=== PATIENT | male | born 1960 | race African-American/Black ===

== ENCOUNTER 2018-03-30 12:10 | Observation (INO) | payer OTHER ==
[2018-03-30 12:59] LABS: ABSOLUTE MONOCYTES (AUTO) 0.4 10^3/uL (0.1-1.4); ABSOLUTE NEUT (AUTO) 11.1 10^3/uL (1.7-8.2); BASOPHILS % (AUTO) 0.3 % (0-2); EOSINOPHILS % (AUTO) 0.2 % (0-6); HEMATOCRIT 41.1 % (37.9-51.0); HEMOGLOBIN 13.8 g/dL (13.5-17.0); LYMPHOCYTES % (AUTO) 8.3 % (13-45); MEAN CORPUSCULAR HEMOGLOBIN 29.8 pg (27.0-33.4); MEAN CORPUSCULAR HGB CONC 33.6 g/dL (32.0-36.0); MEAN CORPUSCULAR VOLUME 89 fl (80-97); MONOCYTES % (AUTO) 3.4 % (3-13); PLATELET COUNT 177 10^3/uL (150-450); RED BLOOD COUNT 4.63 10^6/uL (4.35-5.55); RED CELL DISTRIBUTION WIDTH 14.6 % (11.5-14.0); SEGMENTED NEUTROPHILS % (AUTO) 87.8 % (42-78); TOTAL CELLS COUNTED % (AUTO) 100 %; WHITE BLOOD COUNT 12.7 10^3/uL (4.0-10.5)
[2018-03-30 13:11] LABS: ALANINE AMINOTRANSFERASE 19 U/L (21-72); ALBUMIN 4.1 g/dL (3.5-5.0); ALKALINE PHOSPHATASE 80 U/L (38-126); ANION GAP 12 (5-19); ASPARTATE AMINO TRANSFERASE 29 U/L (17-59); BILIRUBIN,DIRECT 0.2 mg/dL (0.0-0.4); BILIRUBIN,TOTAL 0.9 mg/dL (0.2-1.3); BLOOD UREA NITROGEN 14 mg/dL (7-20); CALCIUM 9.4 mg/dL (8.4-10.2); CARBON DIOXIDE 28 mmol/L (22-30); CHLORIDE 104 mmol/L (98-107); CREATINE KINASE 347 U/L (55-170); GLUCOSE 165 mg/dL (75-110); POTASSIUM 3.6 mmol/L (3.6-5.0); TOTAL PROTEIN 7.2 g/dL (6.3-8.2)
[2018-03-30 13:31] LABS: TROPONIN I < 0.012 ng/mL
[2018-03-30 14:19] LABS: APPEARANCE,URINE SLIGHTLY-CLOUDY; BILIRUBIN,URINE NEGATIVE (NEGATIVE); COLOR,URINE YELLOW; GLUCOSE, URINE NEGATIVE (NEGATIVE); KETONES,URINE NEGATIVE (NEGATIVE); LEUKOCYTE ESTERASE,URINE NEGATIVE (NEGATIVE); NITRITE,URINE NEGATIVE (NEGATIVE); PROTEIN,URINE NEGATIVE (NEGATIVE); URINE SPECIFIC GRAVITY 1.017
--- NOTE | 2018-03-30 14:28 | RADIOLOGY REPORT (SQ) ---
EXAM DESCRIPTION: CHEST SINGLE VIEW COMPLETED DATE/TIME: 03/30/2018 1:43 pm REASON FOR STUDY: SYNCOPE COMPARISON: None. EXAM PARAMETERS: NUMBER OF VIEWS: One view. TECHNIQUE: Single frontal radiographic view of the chest acquired. RADIATION DOSE: NA LIMITATIONS: None. FINDINGS: LUNGS AND PLEURA: No opacities, masses or pneumothorax. No pleural effusion. MEDIASTINUM AND HILAR STRUCTURES: No masses. Contour normal. HEART AND VASCULAR STRUCTURES: Heart normal in size. Normal vasculature. BONES: No acute findings. HARDWARE: None in the chest. OTHER: No other significant finding. IMPRESSION: NO ACUTE RADIOGRAPHIC FINDING IN THE CHEST. TECHNICAL DOCUMENTATION: JOB ID: [id number] [employer]- All Rights Reserved Reading location - IP/workstation name: [email or web address]
--- NOTE | 2018-03-30 15:57 | ER Document Report ---
ED General - General Chief Complaint: Syncope Stated Complaint: SYNCOPAL EPISODE Time Seen by Provider: 03/30/18 12:22 Notes: Patient is a 57-year-old male that presents to the emergency department for chief complaint of syncope. Patient states that he was out fishing earlier today, and felt flushed, he took a few steps towards his truck, and collapsed, and lost consciousness. He states his only a few seconds. He denies having any headache, chest pain, or shortness of breath. He did not have any preceding symptoms other than feeling flushed and "not right" he denies having any nausea, vomiting, urinary incontinence, or biting his tongue. Denies prior history of seizures. States he does not believe he is passed out in the past. He did receive some IV fluids by EMS, he does feel somewhat better now. Past Medical History: Hypertension, hyperlipidemia Past Surgical History: Denies surgical history Social History: Denies tobacco, alcohol or drug use Family History: Reviewed and noncontributory for presenting illness Allergies: Reviewed, see documented allergy list. REVIEW OF SYSTEMS: Unless otherwise stated in this report the patient's positive and negative responses for review of systems for constitutional, eyes, ENT, cardiovascular, respiratory, gastrointestinal, neurological, genitourinary, musculoskeletal, and integumentary systems and related systems to the presenting problem are either as stated in the HPI or were not pertinent or were negative for the symptoms and/or complaints related to the presenting medical problem. PHYSICAL EXAMINATION: Vital signs reviewed, nursing noted reviewed. GENERAL: Well-appearing, well-nourished and in no acute distress. HEAD: Atraumatic, normocephalic. EYES: Eyes appear normal, extraocular movements intact, sclera anicteric, conjunctiva are normal. ENT: nares patent, oropharynx clear without exudates. Moist mucous membranes. NECK: Normal range of motion, supple without lymphadenopathy LUNGS: Breath sounds clear to auscultation bilaterally and equal. No wheezes rales or rhonchi. HEART: Regular rate and rhythm without murmurs ABDOMEN: Soft, nontender, normoactive bowel sounds. No rebound, guarding, or rigidity. No masses appreciated. EXTREMITIES: Nontender, good range of motion, no pitting or edema. NEUROLOGICAL: No focal neurological deficits. Moves all extremities spontaneously Motor and sensory grossly intact on exam. PSYCH: Normal mood, normal affect. SKIN: Warm, Dry, normal turgor, no rashes or lesions noted on exposed skin TRAVEL OUTSIDE OF THE [place] IN LAST 30 DAYS: No - Related Data Allergies/Adverse Reactions: No Known Allergies Allergy (Verified 03/30/18 17:24) Past Medical History - Social History Smoking Status: Never Smoker Family History: Reviewed & Not Pertinent Physical Exam - Vital signs Vitals: Temp Pulse Resp BP Pulse Ox 98.6 F 76 18 140/66 H 98 03/30/18 12:17 03/30/18 12:17 03/30/18 12:17 03/30/18 12:17 03/30/18 12:17 Course - Re-evaluation Re-evalutation: Patient seen and examined vital signs reviewed. Laboratory data and imaging were ordered as appropriate for the patient's presenting symptoms and complaint, with consideration of any critical or life threatening conditions that may be associated with their obtained history and exam as noted above. Patient was treated with IV fluids, that was started with EMS Results were reviewed when available and demonstrated abnormal EKG, no prior for comparison, his troponin was negative, blood work was unremarkable, as was his UA The patient was re-evaluated and was hemodynamically stable, no complaints at this time Evaluation was most consistent with syncopal episode, with EKG changes, that I feel that the patient should be observed in the hospital, for further syncopal workup, given these EKG findings as noted. Patient was agreeable Results were discussed with the patient at this point after careful consideration I feel that that patient should be admitted to the hospital. This was discussed with the patient that it is in the best interest for their care to be admitted for further evaluation and management. Patient agreed with this plan of care. A call was placed to the admitted physician, Sebastian Landry CNP who graciously accepted the patient onto their service. *Note is created using voice recognition software and may contain spelling, syntax or grammatical errors. Laboratory 03/30/18 03/30/18 03/30/18 12:28 12:28 12:28 WBC 12.7 H RBC 4.63 Hgb 13.8 Hct 41.1 MCV 89 MCH 29.8 MCHC 33.6 RDW 14.6 H Plt Count 177 Seg Neutrophils % 87.8 H Lymphocytes % 8.3 L Monocytes % 3.4 Eosinophils % 0.2 Basophils % 0.3 Absolute Neutrophils 11.1 H Absolute Lymphocytes 1.0 Absolute Monocytes 0.4 Absolute Eosinophils 0.0 Absolute Basophils 0.0 Sodium 144.0 Potassium 3.6 Chloride 104 Carbon Dioxide 28 Anion Gap 12 BUN 14 Creatinine 1.16 Est GFR ( Amer) > 60 Est GFR (Non-Af Amer) > 60 Glucose 165 H Calcium 9.4 Total Bilirubin 0.9 Direct Bilirubin 0.2 Neonat Total Bilirubin Not Reportable Neonat Direct Bilirubin Not Reportable Neonat Indirect Bili Not Reportable AST 29 ALT 19 L Alkaline Phosphatase 80 Creatine Kinase 347 H CK-MB (CK-2) 3.40 Troponin I < 0.012 Total Protein 7.2 Albumin 4.1 Urine Color Urine Appearance Urine pH Ur Specific [place] Urine Protein Urine Glucose (UA) Urine Ketones Urine Blood Urine Nitrite Urine Bilirubin Urine Urobilinogen Ur Leukocyte Esterase Urine WBC (Auto) Urine RBC (Auto) U Hyaline Cast (Auto) Urine Mucus (Auto) Urine Ascorbic Acid 03/30/18 03/30/18 13:58 16:47 WBC RBC Hgb Hct MCV MCH MCHC RDW Plt Count Seg Neutrophils % Lymphocytes % Monocytes % Eosinophils % Basophils % Absolute Neutrophils Absolute Lymphocytes Absolute Monocytes Absolute Eosinophils Absolute Basophils Sodium Potassium Chloride Carbon Dioxide Anion Gap BUN Creatinine Est GFR ( Amer) Est GFR (Non-Af Amer) Glucose Calcium Total Bilirubin Direct Bilirubin Neonat Total Bilirubin Neonat Direct Bilirubin Neonat Indirect Bili AST ALT Alkaline Phosphatase Creatine Kinase CK-MB (CK-2) Troponin I < 0.012 Total Protein Albumin Urine Color YELLOW Urine Appearance SLIGHTLY-CLOUDY Urine pH 5.0 Ur Specific [place] 1.017 Urine Protein NEGATIVE Urine Glucose (UA) NEGATIVE Urine Ketones NEGATIVE Urine Blood NEGATIVE Urine Nitrite NEGATIVE Urine Bilirubin NEGATIVE Urine Urobilinogen 2.0 H Ur Leukocyte Esterase NEGATIVE Urine WBC (Auto) 1 Urine RBC (Auto) 1 U Hyaline Cast (Auto) 23 Urine Mucus (Auto) MOD Urine Ascorbic Acid NEGATIVE Chest X-Ray 03/30/18 12:53 IMPRESSION: NO ACUTE RADIOGRAPHIC FINDING IN THE CHEST. - Vital Signs Vital signs: Temp Pulse Resp BP Pulse Ox 98.6 F 60 14 146/88 H 99 03/30/18 12:17 03/30/18 15:57 03/30/18 17:01 03/30/18 17:01 03/30/18 17:01 - Laboratory Result Diagrams: 03/30/18 12:28 03/30/18 12:28 Laboratory results interpreted by me: 03/30/18 03/30/18 03/30/18 12:28 12:28 13:58 WBC 12.7 H RDW 14.6 H Seg Neutrophils % 87.8 H Lymphocytes % 8.3 L Absolute Neutrophils 11.1 H Glucose 165 H ALT 19 L Creatine Kinase 347 H Urine Urobilinogen 2.0 H - EKG Interpretation by Me Additional EKG results interpreted by me: EKG demonstrates sinus rhythm with a ventricular rate of 69 bpm, normal axis, normal intervals, there are T wave inversions in leads II, III and aVF, and J- point elevation in leads V3 and V4, with T wave inversions associated in V3 V4 V5 and V6. No prior EKG for comparison. Discharge - Discharge Clinical Impression: Syncope Qualifiers: Syncope type: unspecified Qualified Code(s): R55 - Syncope and collapse Condition: Stable Disposition: ADMITTED OBSERVATION Admitting Provider: Hospitalist - Dr. Sebastian Landry Unit Admitted: Telemetry
[2018-03-30] MEDS ORDERED: ACETAMINOPHEN 325 MG TABLET PO PRN (16:16)
[2018-03-30] MEDS ORDERED: NORMAL SALINE 1000 ML 1,000 ML IV PRN (16:16)
[2018-03-30] MEDS ORDERED: ASPIRIN 325 MG TABLET PO ONE (17:30)
[2018-03-30] MEDS ORDERED: POTASSIUM CHLORIDE 10 MEQ CAPSULE.ER PO ONE ×2 (17:30→21:22)
--- NOTE | 2018-03-30 17:36 | HISTORY AND PHYSICAL E ---
History and Physical NAME: YVETTE TO : 1960 AGE: 57Y ADMITTED: 03/30/2018 ROOM: ED16 CODE STATUS: Full code. PRIMARY CARE PROVIDER: Dr. Sullivan in [place], [place]. CHIEF COMPLAINT: Syncope. HISTORY OF PRESENT ILLNESS: The patient is a 57-year-old -[place] male with a past medical history of hypertension and hyperlipidemia. The patient presented to the emergency department after having a presyncopal, possible syncopal episode. According to the patient he was outside all day fishing and felt he was exhausted by the fun. The patient apparently brought in his fishing pole and went to walk to his vehicle and subsequently had an episode of weakness and presumed loss of consciousness. The patient stated that his friends were around him and the episode was only a matter of seconds. The patient was hesitant to come to the emergency department, however, he was encouraged to do so. Upon presentation to the emergency department the patient was found to have T-wave inversions in leads II, III, and refractory AF. However, the patient has no prior EKG available for comparison. The patient himself denies any nausea, vomiting, diarrhea. No shortness of breath, dizziness, chest pain. No fevers, chills. He does admit to fatigue. No headaches. No blurring of vision. The patient denies any other symptom changes and the patient is being referred to the hospitalist for observation and management. PAST MEDICAL HISTORY: 1. Hypertension. 2. Hyperlipidemia. PAST SURGICAL HISTORY: None. ALLERGIES: No known drug allergies. HOME MEDICATIONS: 1. Atorvastatin 20 mg p.o. q. hour of sleep. 2. Lisinopril/hydrochlorothiazide 20/25 mg 1 tablet p.o. daily. 3. Triamterene/hydrochlorothiazide 37.5/25 mg 1 tablet p.o. daily. SOCIAL HISTORY: The patient currently resides at home. He is employed full-time in a warehouse. The patient's , Karina, is his surrogate decision maker. The patient has no history of tobacco use. No history of alcohol or illicit drug use. FAMILY MEDICAL HISTORY: Including parents, siblings, children have been reviewed. REVIEW OF SYSTEMS: CONSTITUTIONAL: The patient denies any fevers, chills, or dizziness. No loss of appetite. Brief episode of weakness. INTEGUMENTARY: The patient denies any diaphoresis, rashes, bruising, itching. HEENT: Denies any vision change, hearing loss, nasal drainage, or sore throat. No headache. CARDIOVASCULAR: The patient denies any chest pain, edema, heart palpitations. RESPIRATORY: Denies any shortness of breath, cough, sputum production, or hemoptysis. GASTROINTESTINAL: Denies any nausea, vomiting, diarrhea, abdominal pain, bloody hematemesis, constipation, melena, or hematochezia. GENITOURINARY: Denies any hematuria, polyuria, or dysuria. MUSCULOSKELETAL: Denies any acute or chronic joint pain. NEUROLOGIC: Denies any seizures, tremors. Did have one episode of very brief, possible, loss of consciousness. HEMATOLOGIC: Denies any adriane bleeding, easy bruising. ENDOCRINE: Denies any recent weight change. PSYCHIATRIC: Denies any homicidal or suicidal ideation. The rest of the review of the other organ systems is negative. PHYSICAL EXAMINATION: GENERAL: On examination the patient is a well-developed, well-nourished, 57-year-old -[place] male who is awake, alert, and oriented to person, place, time, and situation. He is verbal, conversational, does not appear to be in any acute distress. VITAL SIGNS: Temperature 98.6, pulse 76, respirations 18, blood pressure 140/66, oxygen saturation is 98% on room air. SKIN: Warm and dry; no rash, he is not diaphoretic. HEENT: Pupils equal, round reactive to light and accommodation. Conjunctivae are pink. Sclerae are nonicteric. Mucous membranes are moist. CARDIOVASCULAR: Heart is regular, no murmur or rub. CHEST: Clear, symmetrical, unlabored. ABDOMEN: Soft, nontender, nondistended. Bowel sounds are present. No palpable organomegaly. BACK: No CVA tenderness or sacral edema. EXTREMITIES: No clubbing, cyanosis, edema, or peripheral signs of embolization. Pedal pulses +1 noted bilaterally. PSYCHIATRIC: Appropriate affect, pleasant mood. DIAGNOSTICS: Lab values are as follows -- Hematology obtained on 03/30/2018; WBC is 11.0, hemoglobin 13.8, hematocrit is 41.1, platelet count is 161,000. Chemistry obtained on 03/30/2018; sodium is 144, potassium 2.6, chloride is 104, carbon dioxide 28, BUN 14, creatinine is 1.16, glucose 165, calcium is 9.4, bilirubin is 0.9, AST 29, ALT 19, alk-phose 80. CK is 347, CK-MB is 3.40, troponin 0.012. Total protein 5.2, albumin 4.1. Urinalysis obtained on 03/30/2018; color yellow, appearance slightly cloudy, pH 5.0, specific gravity 2.017, protein negative, glucose negative, ketones negative, occult blood negative, nitrite negative, bilirubin negative, urobilinogen is 2, leukocyte esterase is negative, WBC is 1, RBC is 1, casts 23, mucus moderate, ascorbic acid negative. A chest x-ray obtained on 03/30/2018 reveals no acute radiographic finding of the chest. EKG obtained on 03/30/2018 has obvious evidence of left ventricular hypertrophy, sinus rhythm with T-wave inversion. IMPRESSION AND PLAN: 1. Syncope. Given the patient's EKG abnormalities we will observe the patient and continue with telemetry. Obtain serial cardiac enzymes. Repeat lipid panel in the a.m. We will go ahead and obtain carotid Dopplers as well. Additionally we will schedule for Cardiolite Stress test, repeat EKG in the a.m. and I will follow. 2. Dehydration. I feel likely this was the source of the above as the patient looks like he is on 2 different agents that include hydrochlorothiazide, including triamterene as well as lisinopril, it looks like the additional medication was just recently added, therefore, we will hydrate the patient overnight as well discontinue hydrochlorothiazide and start the patient on losartan. 3. Hypertension. Blood pressure has been slightly elevated as per the above. CODE STATUS: The patient is a full code. DISPOSITION: Depending on the patient's symptomatology and diagnostic findings will reevaluate in the a.m. after stress test. Will observe the patient on continuous telemetry as the patient's expected length of stay should not surpass 2 midnights. TIME SPENT: On this admission, including assessment, plan, physical examination, patient education, review of records, and a family meeting is 30 minutes. DICTATING PHYSICIAN: BRITTNEE KERN NP [id number] Y#: [id number] ID: [id number] JOB#: [id number] ACCT: [id number] cc: > MTDD
--- NOTE | 2018-03-30 20:45 | EKG REPORT ---
SEVERITY:- ABNORMAL ECG - SINUS RHYTHM LEFT VENTRICULAR HYPERTROPHY NONSPECIFIC T ABNORMALITIES, INFERIOR LEADS ANTERIOR ST ELEVATION, PROBABLY DUE TO LVH : Confirmed by: Kaylynn Baca MD 30-Mar-2018 20:45:23
[2018-03-30] MEDS: VALSARTAN 160 MG TABLET PO SCH (21:27)
--- NOTE | 2018-03-30 21:35 | RADIOLOGY REPORT (SQ) ---
EXAM DESCRIPTION: US CAROTID DOPPLER BILATERAL COMPLETED DATE/TME: 03/30/2018 00:00 CLINICAL HISTORY: 57 years, Male, Syncope COMPARISON: None. TECHNIQUE: Transverse and longitudinal sonographic images of the cervical portions of the carotid arteries were obtained. Doppler and spectral analysis with color flow was utilized. LIMITATIONS: None. FINDINGS: Normal antegrade flow in the vertebral arteries bilaterally. Biphasic and triphasic waveforms are present bilaterally. Imaging over the right carotid artery shows mild atheromatous changes involving the distal right ICA. No visible areas of severe stenosis. Imaging over the left carotid artery shows no significant atheromatous change or visible areas of narrowing. Velocities are as follows (in peak systolic velocity): Right proximal CCA: 83 cm/s. Right proximal ICA: 59 cm/s. Right ICA to CCA ratio: 1.7. Right vertebral artery: 36 cm/s. Right external carotid artery: 75 cm/s. Left proximal CCA: 97 cm/s. Left proximal ICA: 70 cm/s. Left ICA/CCA ratio: 1.0. Left vertebral artery: 40 cm/s. Left external carotid artery: 114 cm/s. IMPRESSION: Mild atheromatous plaque formation of the distal right ICA, as above. No sonographic evidence for severe stenosis. The ICA to CCA ratios correspond to less than 2.0 equals normal. ICA PSV less than 125 equals normal. 2011 [employer]- All Rights Reserved
[2018-03-30] MEDS ORDERED: ATORVASTATIN CALCIUM 80 MG TABLET PO SCH (22:00)
[2018-03-30] MEDS ORDERED: POTASSIUM CHLORIDE 20 MEQ/15 ML UDCUP PO ONE (22:00)
[2018-03-31 06:37] LABS: CHOLESTEROL 151.17 mg/dL (0-200); TRIGLYCERIDES 73 mg/dL (<150)
[2018-03-31 06:48] LABS: DIRECT LDL 85 mg/dL (<100)
[2018-03-31] MEDS ORDERED: ASPIRIN 81 MG TABLET, CHEWABLE PO SCH (10:00)
[2018-03-31] MEDS ORDERED: ENOXAPARIN SODIUM INJ 40 MG/0.4 ML DISP.SYRIN SUBCUT SCH (10:00)
[2018-03-31] MEDS ORDERED: REGADENOSON INJ 0.4 MG/5 ML DISP.SYRIN IV ONE (10:53)
[2018-03-31] MEDS: VALSARTAN 160 MG TABLET PO SCH (10:58)
--- NOTE | 2018-03-31 12:40 | EKG REPORT ---
SEVERITY:- ABNORMAL ECG - SINUS RHYTHM LEFT VENTRICULAR HYPERTROPHY ANTERIOR ST ELEVATION, PROBABLY DUE TO LVH : Confirmed by: Kaylynn Baca MD 31-Mar-2018 12:40:14
[2018-03-31 14:02] VITALS: BP 150/82
--- NOTE | 2018-03-31 20:59 | DRAGON STRESS TEST REPORT ---
ntravenous Lexiscan Cardiolite stress test using single photon emmision computerized tomography. Date of procedure: 03/31/2018. Ordering Provider: Brii Dobbs Patient's status: In Patient Indication: Syncope. Coronary risk factors: Age, hypertension, and dyslipidemia. Resting EKG: Sinus Rhythm. LVH. Stress EKG[ No changes of ischemia. The patient had no chest pain or discomfort, and there were no arrhythmias seen. Reason for termination: Protocol. Conclusions: Normal EKG and hemodynamic response to IV Lexiscan. Nuclear data: At rest the patient was given 12.48 millicuries of technetium 99m sestamibi injected intravenously. As per protocol rest non gated SPECT images were obtained. Subsequently the patient was given intravenous Lexiscan at a dose of 0.4 mg in 5 mL intravenously, followed by flush with normal saline. Subsequently the stress dose of 37.0 millicuries of technetium 99m sestamibi was injected intravenously. As per protocol stress gated images were obtained. Nuclear interpretation: Review of images showed that all segments of the myocardium had normal perfusion at rest, and normal perfusion post stress with IV Lexiscan. All segments of the myocardium had normal motion, contraction, and thickening by gated study. T. I D. ratio was upper normal at 1.22. Visually this looked much less. Computer read rest, and stress left ventricular ejection fraction were 54 %, and 51 %, respectively. Visually both the stress and rest ejection fractions were normal, and greater than 55%. Conclusion: 1. There is no scintigraphic evidence of Lexiscan induced myocardial ischemia. 2. There is no scintigraphic evidence of myocardial infarction/scar. Recommendations: Aggressive risk factor modification, and treating the underlying co- morbidities. MTDD
--- NOTE | 2018-04-02 17:41 | DISCHARGE SUMMARY E ---
Discharge Summary NAME: YVETTE TO : 1960 AGE: 57Y ADMITTED: 03/30/2018 DISCHARGED: 03/31/2018 CODE STATUS: FULL CODE. PRIMARY CARE PROVIDER: Dr. Sullivan in [place], [place] DISCHARGE DIAGNOSES INCLUDE: 1. Dehydration and subsequent syncope. 2. Hypertension. 3. Hyperlipidemia. 4. Mild carotid stenosis. DISCHARGE MEDICATIONS INCLUDE: 1. Aspirin 81 mg p.o. daily. 2. Lipitor 20 mg p.o. at hour of sleep. 3. Sildenafil 5 mg p.o. daily p.r.n. 4. Diovan 160 mg p.o. every 12 hours, 60 tablets with 0 refills. DIET: As tolerated. ACTIVITY: As tolerated. CONDITION: Good. DIAGNOSTICS: Lab values are as follows. Hematology obtained on 03/30/2018: WBCs are 12.7, hemoglobin is 13.8, hematocrit is 41.4, platelet count is 177,000. Chemistry obtained on 03/30/2018: Sodium is 144, potassium 3.6, chloride is 104, carbon dioxide 28, BUN 14, creatinine is 1.16, glucose 165, calcium 9.7, calcium is 9.4. Bilirubin 0.9, AST 29, ALT is 19, alk phos 80. CK 347, CK MB 3.40. Troponin 0.012. Total protein 7.2, albumin 4.1. Triglycerides 73, cholesterol 151, LDL 85, VLDL 15, HDL is 48. Urinalysis obtained on 03/30/2018: Color yellow, appearance slightly cloudy, pH 5.0, specific gravity 1.017, protein negative, glucose negative, ketones negative, occult blood negative, nitrite negative, bilirubin negative, urobilinogen is 2.0, leukocyte esterase negative, WBCs 1, RBCs 1, casts 23, mucus moderate, ascorbic acid negative. Carotid Doppler obtained on 03/30/2018 reveals mild plaque formation in the distal ICA but no sonographic evidence of severe stenosis. PHYSICAL EXAMINATION: GENERAL: The patient is a well-developed, well-nourished 57-year-old -[place] who is awake, alert, and oriented to person, place, time, and situation. He is verbal, conversational, does not appear to be in any acute distress. VITAL SIGNS: As follows: Temperature is 98.4, pulse 67, respirations 16, blood pressure 143/82, oxygen saturation is 100% on room air. SKIN: Warm and dry. No rash, not diaphoretic. HEENT: Pupils equal, round, and reactive to light and accommodation. Conjunctivae pink. No evidence of JVP. CARDIOVASCULAR: Heart is regular. There is no murmur or rub. CHEST: Clear, symmetrical, unlabored. ABDOMEN: Soft, nontender, nondistended. BACK: No CVA tenderness or sacral edema. EXTREMITIES: No clubbing, cyanosis, edema. PSYCHIATRIC: Appropriate affect. Pleasant mood. HISTORY OF PRESENT ILLNESS: The patient is a 57-year-old -[place] male with a past medical history of hypertension and hyperlipidemia. The patient presented to the Emergency Department with a chief complaint of syncopal episode. According to the patient he was outside fishing all day and felt that he was exhausted by the heat. The patient apparently brought in his fishing pole and went to walk to his vehicle and subsequently had weakness and presumed loss of consciousness. The patient stated that his friends were around him and the episode was only a matter of seconds. The patient was hesitant to come to the Emergency Department; however, he was encouraged to do so. Upon presentation to the Emergency Department the patient was found to have a negative set of cardiac enzymes. He was found to be normotensive with a normal glucose. The patient was noted to have some T-wave inversions in lead II and III and refractory *------*; however, there was no prior EKG for comparison. The patient denied any nausea, vomiting, or diarrhea and feels back to his normal baseline. However, given these findings on EKG, he was referred to the hospitalist for observation and management. HOSPITAL COURSE: The patient was admitted to a continuous telemetry unit. Serial cardiac enzymes were obtained, all of which were not suggestive. The patient had no evidence on stain maker and no EKG changes. The patient was asymptomatic throughout the night. The patient's lipid panel was unremarkable and the patient was continued on his aspirin and statin therapy. The patient did have a carotid duplex which suggested carotid stenosis but it does need to be followed up on an outpatient basis by his primary care provider but nothing high grade. The patient underwent a Cardiolite stress test that had no evidence of acute ischemia and, therefore, the patient has been cleared for discharge to follow up with his primary care provider. The patient is agreeable to this plan. Time spent on this discharge, including assessment/plan, physical examination, patient education, review of records, is 25 minutes. DICTATING PHYSICIAN: BRITTNEE KERN NP [id number] PHY#: [id number] ID: [id number] JOB#: [id number] ACCT: [id number] cc:Earle SALGADO NP >
== END 2018-03-31 14:18 | disposition home or self-care (01) ==
LOC: ER 12:10 → EH 16:18 → 4S 19:13
PROVIDERS: ADMIT Emergency Medicine; ATTEND Emergency Medicine
DX: E86.0 Dehydration (principal); R55 Syncope and collapse; I10 Essential (primary) hypertension; E78.5 Hyperlipidemia, unspecified; I65.21 Occlusion and stenosis of right carotid artery; R53.1 Weakness; Z79.899 Other long term (current) drug therapy
CPT/HCPCS: 93005 ×2; 99285; 36415 ×2; 82553; 82550; 85025; 80053; 81001; 84484; 83036; 80061; 93017; 93880; 71045; 78452; 93010 ×2; G0378 ×3; A9500; J2785; J7030; Q9969